=== PATIENT | female | born 1985 | race Caucasian/White ===

== ENCOUNTER 2017-07-31 09:43 | Emergency (ER) | payer MEDICAID, OTHER ==
[~2017-07-31] VITALS: Ht 167.6 cm; Wt 86.3 kg
[~2017-07-31 09:43] MED LIST: NO MEDS
[2017-07-31 10:52] LABS: APPEARANCE,URINE CLOUDY (CLEAR); GLUCOSE, URINE (UA) NEGATIVE (NEGATIVE); KETONES,URINE TRACE mg/dL (NEGATIVE); LEUKOCYTE ESTERASE ,URINE SMALL (NEGATIVE); OCCULT BLOOD,URINE NEGATIVE (NEGATIVE); PH,URINE 5.5 (5.0-8.0); PROTEIN,URINE POS 1+ (NEGATIVE)
[2017-07-31 10:59] LABS: ADD UA MICROSCOPIC YES
[2017-07-31 11:01] LABS: RBC,URINE None Seen /HPF (0-2); SQUAMOUS EPITHELIAL CELL,UR Many /LPF (None Seen)
[2017-07-31 11:03] LABS: COARSE GRANULAR CASTS,URINE 0-2 /LPF (None Seen); HYALINE CASTS, URINE 0-2 /LPF (None Seen)
[2017-07-31 11:05] VITALS: BP 121/71
== END 2017-07-31 12:00 | disposition home or self-care (01) ==
LOC: EMS 09:45
DX: R82.71 Bacteriuria (principal); N39.0 Urinary tract infection, site not specified
CPT/HCPCS: 81025; 87086; 99284